=== PATIENT | female | born 1980 | race Caucasian/White ===

== ENCOUNTER 2024-06-18 06:36 | Emergency (ER) | payer OTHER ==
[~2024-06-18] VITALS: Ht 162.6 cm; Wt 59.0 kg
[2024-06-18 06:44] VITALS: PULSE 98; RESP 18; TEMP 97.9; O2SAT 100
== END 2024-06-18 06:56 | disposition home or self-care (01) ==
LOC: ER 06:40
DX: J30.2 Other seasonal allergic rhinitis (principal)
CPT/HCPCS: 99282

== ENCOUNTER 2025-04-24 16:38 | Emergency (ER) | payer OTHER ==
[~2025-04-24] VITALS: Ht 162.6 cm; Wt 59.0 kg
[2025-04-24] MEDS: SODIUM CHLORIDE 0.9% 1000ML 1,000 ML IV STA (16:56)
[2025-04-24] MEDS: NALOXONE HCL 2MG/2 ML SYRINGE IV STA (16:56)
[2025-04-24 16:59] LABS: BASOPHILS % 0.6 % (0.0-1.0); EOSINOPHILS % 1.3 % (0.0-6.0); LYMPHOCYTES % 38.3 % (18.0-39.1); MONOCYTES % 7.1 % (4.4-11.3); NEUTROPHILS % 52.5 % (38.7-80.0); RED CELL DISTRIBUTION WIDTH 13.1 % (11.7-14.4)
[2025-04-24 17:43] LABS: EST GLOMERULAR FILTRATION RATE 111.0 ML/MIN (>=60)
[2025-04-24 18:27] LABS: OPIATES SCREEN,URINE NEGATIVE (NEGATIVE)
[2025-04-24 18:28] LABS: AMPHETAMINES SCREEN,URINE POSITIVE (NEGATIVE); CANNABINOIDS SCREEN,URINE NEGATIVE (NEGATIVE); COCAINE SCREEN,URINE NEGATIVE (NEGATIVE); METHADONE SCREEN, URINE NEGATIVE (NEGATIVE)
[2025-04-24 18:58] VITALS: TEMP 97.1
[2025-04-24 20:32] VITALS: PULSE 66; RESP 16
[2025-04-24 21:25] VITALS: BP 115/79; PULSE 71; RESP 15; TEMP 97.4; O2SAT 100
== END 2025-04-24 21:28 | disposition home or self-care (01) ==
LOC: ER 16:42
DX: R41.0 Disorientation, unspecified (principal); T42.4X1A Poisoning by benzodiazepines, accidental (unintentional), initial encounter; F15.10 Other stimulant abuse, uncomplicated; F17.210 Nicotine dependence, cigarettes, uncomplicated
CPT/HCPCS: 36415; 70450; 72125; 80053; 80307; 80320; 82550; 84484; 84702; 85025; 93005; 99284; J2312; J7030